=== PATIENT | female | born 1985 | race African-American/Black ===

== ENCOUNTER 2017-05-28 07:05 | Inpatient (IN) | payer BC ==
[~2017-05-28] VITALS: Ht 170.2 cm; Wt 120.7 kg
[2017-05-28] MEDS ORDERED: TOPIRAMATE25 MG PO (07:35)
[2017-05-28] MEDS ORDERED: PILOCARPINE HCL PEG (07:35)
[2017-05-28] MEDS ORDERED: GABAPENTIN100 MG PEG (07:35)
[2017-05-28] MEDS ORDERED: PLAQUENIL200 MG PO (07:35)
[2017-05-28] MEDS ORDERED: ACYCLOVIR200 MG PO (07:35)
[2017-05-28] MEDS ORDERED: ULTRAM50 MG PO (07:35)
[2017-05-28] MEDS ORDERED: ZOFRAN ODT4 MG SL (07:35)
[2017-05-28] MEDS ORDERED: PROMETHAZINE HC25 M1 PO (07:35)
[2017-05-28] MEDS ORDERED: TYLENOL WITH C1 EACH PO (07:35)
[2017-05-28] MEDS ORDERED: TRIUMEQ 600-50-300 PO (07:35)
[2017-05-28] MEDS ORDERED: METHYLPREDNISOLONE SOD SUCC 125 MG/2ML VIAL IV STA (07:36)
[2017-05-28] MEDS ORDERED: MORPHINE SULFATE 5 MG/ML VIAL IV STA (07:36)
[2017-05-28] MEDS ORDERED: SODIUM CHLORIDE 0.9% 1000ML 1,000 ML IV STA (07:36)
[2017-05-28] MEDS ORDERED: ONDANSETRON HCL INJ 2 MG/ML VIAL IV STA (07:36)
[2017-05-28 08:11] LABS: BASOPHILS # (AUTO) 0.1 (0.0-0.1); BASOPHILS % 0.7 % (0.0-1.0); EOSINOPHILS # (AUTO) 0.1 (0.0-0.4); EOSINOPHILS % 0.9 % (0.0-6.0); HEMATOCRIT 37.2 % (34.2-44.1); HEMOGLOBIN 12.1 g/dL (12.0-16.0); LYMPHOCYTES # (AUTO) 2.2 (1.0-3.2); LYMPHOCYTES % 23.6 % (18.0-39.1); MEAN CORPUSCULAR HEMOGLOBIN 29.1 pg (28-32); MEAN CORPUSCULAR HGB CONC 32.5 g/dL (31-35); MEAN CORPUSCULAR VOLUME 89.4 fL (81-99); MONOCYTES # (AUTO) 0.9 (0.2-0.8); MONOCYTES % 9.4 % (4.4-11.3); PLATELET COUNT 254 x10e3/uL (140-360); RED BLOOD COUNT 4.16 x10e6/uL (3.6-5.1); RED CELL DISTRIBUTION WIDTH 13.4 % (11.7-14.4)
[2017-05-28] MEDS ORDERED: MORPHINE SULFATE 5 MG/ML VIAL IV ONE ×2 (08:30→09:00)
[2017-05-28] MEDS ORDERED: ONDANSETRON HCL INJ 2 MG/ML VIAL IV ONE (08:30)
[2017-05-28 08:44] LABS: BILIRUBIN,URINE NEGATIVE (NEGATIVE); KETONES,URINE NEGATIVE (NEGATIVE); LEUKOCYTE ESTERASE ,URINE TRACE (NEGATIVE); NITRITE,URINE NEGATIVE (NEGATIVE); PROTEIN,URINE DIPSTICK NEGATIVE (NEGATIVE); URINE UROBILINOGEN 0.2 mg/dL (0.2 - 1)
[2017-05-28 08:45] LABS: INR 0.94
[2017-05-28 08:46] LABS: PARTIAL THROMBOPLASTIN TIME 31.4 seconds (23.8-35.5)
[2017-05-28 08:54] LABS: CLARITY,URINE SL CLOUDY (CLEAR); COLOR,URINE YELLOW (YELLOW)
[2017-05-28 08:55] LABS: ALANINE AMINOTRANSFERASE 18 IU/L (0-55); ALBUMIN 3.5 g/dL (3.5-5.0); ALKALINE PHOSPHATASE 94 IU/L (40-150); ANION GAP 12.4 mmol/L (8-16); BLOOD UREA NITROGEN 11 mg/dL (7-26); BUN/CREATININE RATIO 13 (6-25); CALCIUM 8.4 mg/dL (8.4-10.2); CARBON DIOXIDE 20 mmol/L (22-29); CHLORIDE 111 mmol/L (98-107); CREATININE, SERUM 0.82 mg/dL (0.57-1.11); EST GLOMERULAR FILTRATION RATE > 60 ML/MIN (60-); GLUCOSE 89 mg/dL (74-118); LIPASE 25 U/L (8-78); POTASSIUM 3.4 mmol/L (3.5-5.1); SODIUM 140 mmol/L (136-145)
[2017-05-28 09:00] LABS: BACTERIA,URINE RARE /HPF; EPITHELIAL CELLS,URINE MODERATE /LPF
--- NOTE | 2017-05-28 09:12 | Diagnostic Imaging Report ---
PROCEDURE: X-RAY CHEST, TWO VIEWS COMPARISON: 03/11/2017. INDICATIONS: LUPUS, WEAKNESS FINDINGS: Lungs are well-inflated. Right infrahilar patchy opacity is unchanged and likely represents summation of vascular structures. Nodular opacity projects over the column on the lateral radiograph and is also unchanged. No new consolidation. No pleural effusion or pneumothorax. Stable borderline enlargement of the cardiac silhouette without vascular decompensation. No acute osseous abnormality. CONCLUSION: Stable right infrahilar opacity likely represents summation of vascular structures. No acute cardiopulmonary normality. Questionable nodular opacity projecting over the vertebral column, best seen on the lateral radiograph. Outpatient CT scan of the chest without contrast is suggested for further evaluation. Dictated by: Neel Morrow M.D. on 05/28/2017 at 9:21 Electronically approved by: Neel Morrow M.D. on 05/28/2017 at 9:21
[2017-05-28] MEDS ORDERED: MORPHINE SULFATE 4 MG/ML SYR IV SCH (09:30)
[2017-05-28] MEDS ORDERED: MORPHINE SULFATE 5 MG/ML VIAL IV SCH (10:00)
[2017-05-28] MEDS ORDERED: CEFTRIAXONE SOD 1 GM VIAL IV ONE (11:00)
--- NOTE | 2017-05-28 11:45 | Diagnostic Imaging Report ---
PROCEDURE: CT ABDOMEN AND PELVIS WITH CONTRAST TECHNIQUE: The abdomen and pelvis were scanned utilizing a multidetector helical scanner from the diaphragm to the lesser trochanter after the IV administration of 100 cc of Isovue 370. Coronal and sagittal multiplanar reformations were obtained. COMPARISON: None. INDICATIONS: LUPUS FINDINGS: LOWER THORAX: Normal. HEPATOBILIARY: No focal hepatic lesion. No intrahepatic or extrahepatic biliary ductal dilatation. Gallbladder is unremarkable. SPLEEN: No splenomegaly. Small splenule in the hilum. PANCREAS: No focal masses or ductal dilatation. ADRENALS: No adrenal nodules. KIDNEYS/URETERS: No hydronephrosis, stones, or solid mass lesions. PELVIC ORGANS/BLADDER: Urinary bladder is unremarkable. Intrauterine device is noted. No adnexal mass. PERITONEUM / RETROPERITONEUM: No ascites or pneumoperitoneum. LYMPH NODES: No pelvic sidewall, retroperitoneal, or mesenteric lymphadenopathy. Mildly prominent left inguinal lymph node measures 1.3 cm short axis with normal morphology. VESSELS: The abdominal aorta, major branch vessels, and iliac arterial systems are patent. Portal vein, splenic vein, and central superior mesenteric vein are patent. Incidental note of a retroaortic left renal vein. GI TRACT: The large bowel shows no evidence of distention or wall thickening. Gas and fecal material is noted throughout. The appendix is normal. There are a few mildly dilated loops of small bowel in the left upper quadrant to a maximum of 3.4 cm in caliber. No transition point is identified. BONES AND SOFT TISSUES: Postsurgical changes of the left inguinal region likely related to prior lymph node dissection. Otherwise no focal soft tissue abnormalities. No osseous destructive lesions. IMPRESSION: Mildly dilated loops of small bowel in the left upper quadrant likely reflects ileus in the absence of a defined transition point. Otherwise no acute intra-abdominal or pelvic CT abnormalities. Dictated by: Neel Morrow M.D. on 05/28/2017 at 11:54 Electronically approved by: Neel Morrow M.D. on 05/28/2017 at 11:54
[2017-05-28] MEDS ORDERED: PROMETHAZINE HCL (IM) 25 MG/ML VIAL IV PRN (12:45)
[2017-05-28] MEDS ORDERED: MORPHINE SULFATE 2 MG/ML SYR IV PRN (12:45)
[2017-05-28] MEDS ORDERED: CEFTRIAXONE SOD 1 GM VIAL IV SCH (12:45)
[2017-05-28] MEDS: SODIUM CHLORIDE 0.9% 1000ML 1,000 ML IV SCH ×2 (13:41→20:32)
[2017-05-28] MEDS ORDERED: IOPAMIDOL 370 MG/ML 200 ML INFUS..BTL INJ ONE (13:49)
[2017-05-28] MEDS ORDERED: SODIUM CHLORIDE 0.9% 50ML 50 ML ONE (13:49)
[2017-05-28] MEDS: MORPHINE SULFATE 5 MG/ML VIAL IV PRN ×2 (14:34→22:21)
[2017-05-28] MEDS: METHYLPREDNISOLONE SOD SUCC 125 MG/2ML VIAL IV SCH ×2 (14:34→22:48)
--- NOTE | 2017-05-28 19:48 | History and Physical ---
The patient came in with abdominal pain. HISTORY OF PRESENT ILLNESS: Ms. Rosalina Nelson has a history of lupus erythematosus, Sjogren's syndrome and HIV. She was in her usual state of health until the day of admission the patient woke up in the morning and felt funny, according to her. She started driving and felt abdominal pain and was intensifying and came to the emergency room and was found to have an ileus and was admitted for the same. PAST MEDICAL HISTORY: History of migraine headaches, history of HIV, history of Sjogren's syndrome, history of chronic nausea, history of chronic pain and history of lupus. HOME MEDICATIONS: Gabapentin 100 mg at 1 a.m. and 3 p.m. Pilocarpine 3 times daily for Sjogren's, 15 mg 2 tablets daily for migraine. Plaquenil 200 mg 2 tablets daily for lupus. Promethazine 25 mg one q.12 h. as needed. Ondansetron 4 mg q.6 h. as needed. Tramadol 50 mg q.6 h. as needed. codeine 330 tablet q.6 h. She also takes Triumeq 650, 300 for HIV. Acyclovir 200 mg daily for herpetic outbreaks. PAST SURGICAL HISTORY: Noncontributory. FAMILY HISTORY: Noncontributory. REVIEW OF SYSTEMS: Significant for chest pain. Positive for some shortness of breath. Positive for abdominal pain. No constipation. Did have bowel movement yesterday. Positive for some nausea. No hematochezia, no hematemesis and no rectal bleeding. No diplopia and no blurry vision. PHYSICAL EXAMINATION GENERAL: The patient is alert and oriented x3 and in no acute distress at this time. Pain is controlled. HEENT: Normocephalic, atraumatic. There is no icterus present. CVS: S1 and S2 normal. Regular rate and rhythm. ABDOMEN: Nondistended, soft, bowel sounds very sluggish. EXTREMITIES: No cyanosis, clubbing or edema. LABORATORY DATA: Initial white count 9.5, hemoglobin 12.1, hematocrit of 37.2. Chemistry: Sodium 140, potassium 3.4, chloride 111. CO2 was 20 and coags were normal. Urine was also showed a trace of mild leukocyte esterase and moderate amount of epithelial cells. Serology influenza was negative. The patient also did have body aches too. IMAGING: Chest x-ray shows stable right infrahilar opacity, inflammation of vascular structure, questionable nodular opacity projecting over the vertebral ____, best seen through lateral radiograph. The patient's CT of the chest without contrast suggested, and the patient was notified of this, and the patient was asked to do that on an outpatient basis and she agreed to it. The abdominal CT shows mildly dilated loops of small bowel in the left upper quadrant likely reflecting ileus in absence of defined transition point. ASSESSMENT AND PLAN: Ileus. Will keep to n.p.o. IV fluid has been started. Will also consult GI and will continue keeping her n.p.o. for tonight, at least repeat her magnesium and calcium, and her chemistries tomorrow. Further recommendations depending on clinical course. We did discuss the patient about ileus and she was agreeable to the treatment modality. Will continue to follow the patient along with GI. Job#: [id number]
[2017-05-28 20:45] VITALS: BP 112/68
[2017-05-28] MEDS: ONDANSETRON HCL INJ 2 MG/ML VIAL IV PRN (22:21)
[2017-05-28 22:27] VITALS: BP 112/68
[2017-05-28 23:40] VITALS: BP 112/68
[2017-05-29] MEDS ORDERED: ACYCLOVIR200 MG PO (00:22)
[2017-05-29] MEDS ORDERED: PILOCARPINE HCL5 MG PO (00:22)
[2017-05-29] MEDS ORDERED: PLAQUENIL200 MG PO (00:22)
[2017-05-29] MEDS ORDERED: PROMETHAZINE HC25 M1 PO (00:23)
[2017-05-29] MEDS ORDERED: GABAPENTIN100 MG PO ×2 (00:26→00:27)
[2017-05-29] MEDS ORDERED: TYLENOL WITH C1 EACH PO (00:29)
[2017-05-29 02:09] VITALS: BP 110/75
[2017-05-29] MEDS: PANTOPRAZOLE 40 MG 10ML VIAL IV SCH ×3 (04:35→22:45)
[2017-05-29] MEDS: SODIUM CHLORIDE 0.9% 1000ML 1,000 ML IV SCH ×3 (05:15→17:21)
[2017-05-29] MEDS: METHYLPREDNISOLONE SOD SUCC 125 MG/2ML VIAL IV SCH ×3 (05:57→22:45)
[2017-05-29 06:10] LABS: BASOPHILS % 0.1 % (0.0-1.0); HEMATOCRIT 34.2 % (34.2-44.1); HEMOGLOBIN 11.4 g/dL (12.0-16.0); LYMPHOCYTES # (AUTO) 1.6 (1.0-3.2); LYMPHOCYTES % 10.5 % (18.0-39.1); MEAN CORPUSCULAR HEMOGLOBIN 29.2 pg (28-32); MEAN CORPUSCULAR HGB CONC 33.3 g/dL (31-35); MEAN CORPUSCULAR VOLUME 87.7 fL (81-99); MONOCYTES # (AUTO) 0.2 (0.2-0.8); MONOCYTES % 1.6 % (4.4-11.3); NEUTROPHILS # (AUTO) 13.3 (2.1-6.9); NEUTROPHILS % 87.3 % (38.7-80.0); PLATELET COUNT 259 x10e3/uL (140-360); RED CELL DISTRIBUTION WIDTH 13.2 % (11.7-14.4)
[2017-05-29 06:11] VITALS: BP 108/58
[2017-05-29 06:45] LABS: ALANINE AMINOTRANSFERASE 14 IU/L (0-55); ALBUMIN 3.4 g/dL (3.5-5.0); ALKALINE PHOSPHATASE 95 IU/L (40-150); ANION GAP 10.7 mmol/L (8-16); BLOOD UREA NITROGEN 10 mg/dL (7-26); BUN/CREATININE RATIO 13 (6-25); CALCIUM 8.1 mg/dL (8.4-10.2); CARBON DIOXIDE 17 mmol/L (22-29); CHLORIDE 115 mmol/L (98-107); CREATININE, SERUM 0.76 mg/dL (0.57-1.11); EST GLOMERULAR FILTRATION RATE > 60 ML/MIN (60-); GLUCOSE 109 mg/dL (74-118); LIPASE 8 U/L (8-78); MAGNESIUM 1.8 MG/DL (1.3-2.1); PHOSPHORUS 2.7 MG/DL (2.3-4.7); POTASSIUM 3.7 mmol/L (3.5-5.1); SODIUM 139 mmol/L (136-145)
[2017-05-29 07:04] LABS: THYROID STIMULATING HORMONE 0.244 uIU/mL (0.350-4.940)
[2017-05-29 08:30] VITALS: BP 103/54
[2017-05-29] MEDS ORDERED: SINCALIDE 3 MCG/VIAL INJ ONE (09:02)
--- NOTE | 2017-05-29 09:11 | Diagnostic Imaging Report ---
PROCEDURE:X-RAY ABDOMEN - KUB COMPARISON:None. INDICATIONS:ILLEUS FINDINGS: There is a non-obstructed bowel-gas pattern. There are no calcifications projected over the renal shadows, expected course of the ureters or bladder. There are no acute osseous abnormalities. The lung bases are clear. Intrauterine device is present. Phleboliths are present. CONCLUSION: No acute radiographic abnormality. Dictated by: Joshua Vera M.D. on 05/29/2017 at 9:19 Electronically approved by: Joshua Vera M.D. on 05/29/2017 at 9:19
[2017-05-29] MEDS: PIPER-TAZ 3.375 GM 50 ML IV SCH ×2 (12:00→17:21)
[2017-05-29 15:54] VITALS: BP 121/60
[2017-05-29] MEDS: TRIUMEQ PO SCH (17:00)
--- NOTE | 2017-05-29 17:54 | Diagnostic Imaging Report ---
PROCEDURE:US GALLBLADDER COMPARISON:None. INDICATIONS:R/O Gallstones FINDINGS: LIVER: Size:12.1 cm in the right nidclavicular line, normal Appearance:Normal echogenicity, smooth contour Mass:No focal masses GALLBLADDER: Stones/Sludge:None Appearance:No wall thickening, pericholecystic fluid or hydrops. Gallbladder wall measures 0.3 cm. Sonographic Boyer's Sign:Negative BILE DUCTS: Intrahepatic Ducts:No dilation Extrahepatic Ducts:Common bile duct measures 0.30 cm, no dilatation. PANCREAS: Visualized portions of the neck and proximal body are normal. RIGHT KIDNEY: Size:11.7 x 4.4 x 6.3 cm in length Echogenicity:Normal Collecting System:No hydronephrosis Stone:None Cyst/Mass:None VESSELS: Aorta:Visualized portions are normal. Inferior Vena Cava:Visualized portions are normal. Main Portal Vein:1.0 cm, normal size with hepatopedal flow. FREE FLUID: No ascites or pleural effusions. CONCLUSION: Normal right upper quadrant ultrasound. Dictated by: Daniel Spear M.D. on 05/29/2017 at 18:03 Electronically approved by: Daniel Spear M.D. on 05/29/2017 at 18:03
[2017-05-29 20:00] VITALS: BP 118/54
[2017-05-30] VITALS (10 sets, daily range): BP systolic 95–117; BP diastolic 51–66
[2017-05-30] MEDS: PIPER-TAZ 3.375 GM 50 ML IV SCH ×4 (00:06→18:31)
[2017-05-30] MEDS: MORPHINE SULFATE 5 MG/ML VIAL IV PRN ×3 (00:46→06:28)
[2017-05-30] MEDS: SODIUM CHLORIDE 0.9% 1000ML 1,000 ML IV SCH ×2 (04:12→13:11)
[2017-05-30] MEDS: METHYLPREDNISOLONE SOD SUCC 125 MG/2ML VIAL IV SCH ×3 (05:47→21:47)
[2017-05-30] MEDS: ONDANSETRON HCL INJ 2 MG/ML VIAL IV PRN (06:28)
[2017-05-30] MEDS: PANTOPRAZOLE 40 MG 10ML VIAL IV SCH ×2 (08:16→21:47)
[2017-05-30] MEDS: TRIUMEQ PO SCH (08:16)
--- NOTE | 2017-05-30 13:25 | Diagnostic Imaging Report ---
Hepatobiliary Scan with Gallbladder Ejection Fraction Clinical information: 32 F with upper abdominal pain; chronic nausea Technique: Following intravenous administration of 6.8 millicuries of Tc-99m mebrofenin, dynamic images of the abdomen in the anterior projection were obtained through 60 minutes. Sincalide (CCK analog) 2.5 micrograms was administered intravenously over 30 minutes with additional imaging for determination of gallbladder ejection fraction. Discussion: Perfusion of the liver is normal. Extraction of tracer by the liver parenchyma is normal. Tracer appears promptly within the biliary tract. The gallbladder begins to fill by 10 minutes post injection of tracer and fills adequately. Tracer is seen in the small bowel during the sincalide infusion. The gallbladder ejection fraction with sincalide is 17% (normal greater than 40%). Impression: 1. Filling of the gallbladder excludes acute cystic duct obstruction/acute cholecystitis. 2. The decreased gallbladder ejection fraction of 17% supports the clinical diagnosis of chronic cholecystitis/gallbladder dyskinesia. Signed by: Dr. Viktoriya Tee M.D. on 05/30/2017 1:22 PM
--- NOTE | 2017-05-30 16:08 | Operative Report ---
DATE OF PROCEDURE: May 30, 2017 REFERRING PHYSICIAN: Dr. Luis Melara PROCEDURE PERFORMED: Esophagogastroduodenoscopy. INDICATIONS FOR ESOPHAGOGASTRODUODENOSCOPY: Upper abdominal pain, nausea and vomiting. MEDICATION: Patient was done under MAC. Please see anesthesiologist's note. PROCEDURE: With patient in the left lateral decubitus position, flexible fiberoptic Olympus gastroscope was introduced into the esophagus under direct visualization without any difficulty. There was some patchy erythema noted in distal esophagus. The scope was then advanced with ease into the stomach and mucosa overlying the antrum and the body revealed some patchy erythema and low-grade edema and biopsies were obtained and sent to stain for H. pylori. The pylorus was of normal contour and shape. Was intubated with ease and the scope was advanced all the way to the 2nd portion of the duodenum. The scope was then withdrawn slowly. Mucosa overlying the proximal 2nd portion and the duodenal bulb appeared to be within normal limits. The scope was then withdrawn back into the stomach and retroflexed and the mucosa overlying the fundus and the cardia appeared to be within normal limits. The scope was then straightened out. The stomach was decompressed. Scope was subsequently withdrawn. Patient tolerated procedure well. IMPRESSION: 1. Distal esophagitis. 2. Gastritis, mild, biopsied. Biopsy sent to stain for H. pylori. PLAN: Follow up histology. Continue Protonix 40 mg 1 p.o. q.a.m. a.c. Findings do not explain patient's abdominal pain, nausea, or vomiting. Might benefit from having a laparoscopic cholecystectomy. Job#: [id number] cc:LUIS MELARA MD cc:BELLA VICK MD
[2017-05-30] MEDS ORDERED: MIDAZOLAM HCL 2 MG/2 ML VIAL ONE (20:04)
[2017-05-30] MEDS ORDERED: FENTANYL CITRATE/PF 100MCG/2 ML INJ ONE (20:04)
[2017-05-30] MEDS ORDERED: PROPOFOL IV EMULSION 10 MG/ML 50 ML VIAL ONE (20:30)
[2017-05-30] MEDS ORDERED: LIDOCAINE HCL 2% LOCAL INJ 5 ML SDV VIAL INJ ONE (20:30)
[2017-05-31] VITALS (9 sets, daily range): BP systolic 103–134; BP diastolic 58–76
[2017-05-31] MEDS: PIPER-TAZ 3.375 GM 50 ML IV SCH ×4 (00:30→17:18)
[2017-05-31] MEDS: ONDANSETRON HCL INJ 2 MG/ML VIAL IV PRN ×3 (01:28→18:47)
[2017-05-31] MEDS: MORPHINE SULFATE 5 MG/ML VIAL IV PRN ×3 (01:28→18:47)
[2017-05-31] MEDS: SODIUM CHLORIDE 0.9% 1000ML 1,000 ML IV SCH ×4 (02:35→20:40)
[2017-05-31] MEDS: METHYLPREDNISOLONE SOD SUCC 125 MG/2ML VIAL IV SCH ×3 (06:04→21:43)
[2017-05-31 06:42] LABS: BASOPHILS % 0.1 % (0.0-1.0); HEMATOCRIT 32.7 % (34.2-44.1); HEMOGLOBIN 10.7 g/dL (12.0-16.0); LYMPHOCYTES # (AUTO) 1.6 (1.0-3.2); MEAN CORPUSCULAR HEMOGLOBIN 29.2 pg (28-32); MEAN CORPUSCULAR HGB CONC 32.7 g/dL (31-35); MEAN CORPUSCULAR VOLUME 89.3 fL (81-99); MONOCYTES # (AUTO) 0.3 (0.2-0.8); MONOCYTES % 2.3 % (4.4-11.3); NEUTROPHILS # (AUTO) 9.6 (2.1-6.9); PLATELET COUNT 261 x10e3/uL (140-360); RED BLOOD COUNT 3.66 x10e6/uL (3.6-5.1); RED CELL DISTRIBUTION WIDTH 13.4 % (11.7-14.4)
[2017-05-31 07:03] LABS: ANION GAP 10.7 mmol/L (8-16); BLOOD UREA NITROGEN 12 mg/dL (7-26); BUN/CREATININE RATIO 16 (6-25); CALCIUM 7.6 mg/dL (8.4-10.2); CARBON DIOXIDE 21 mmol/L (22-29); CHLORIDE 114 mmol/L (98-107); CREATININE, SERUM 0.73 mg/dL (0.57-1.11); EST GLOMERULAR FILTRATION RATE > 60 ML/MIN (60-); GLUCOSE 111 mg/dL (74-118); POTASSIUM 3.7 mmol/L (3.5-5.1); SODIUM 142 mmol/L (136-145)
[2017-05-31] MEDS ORDERED: BUPIVACAINE 0.25% 30ML SDV INJ ONE (08:55)
[2017-05-31] MEDS: TRIUMEQ PO SCH (09:00)
[2017-05-31] MEDS: PANTOPRAZOLE 40 MG 10ML VIAL IV SCH ×2 (09:00→21:00)
[2017-05-31] MEDS ORDERED: FENTANYL CITRATE/PF 100MCG/2 ML INJ ONE ×2 (11:56→18:51)
--- NOTE | 2017-05-31 12:28 | Operative Report ---
DATE OF PROCEDURE: May 31, 2017 PREOPERATIVE DIAGNOSIS: Biliary dyskinesia. POSTOPERATIVE DIAGNOSIS: 1. Biliary dyskinesia. 2. Acalculous cholecystitis. PROCEDURE PERFORMED: Laparoscopic cholecystectomy. ANESTHESIA: General endotracheal. ESTIMATED BLOOD LOSS: Minimal. DRAINS: None. COMPLICATIONS: None. INDICATIONS AND FINDINGS: The patient is a 32-year-old female with multiple medical problems, admitted through the emergency room because of sudden onset of abdominal pain. Patient was evaluated by Dr. Rick Dsouza from and was found to have biliary dyskinesia with an ejection fraction of 17%. She had no stones. Preoperatively she was endoscoped and had some mild distal esophagitis and gastritis. The patient preoperatively was advised and understood that there were no guarantees that the pain may not recur later on. INTRAOPERATIVE FINDINGS: The patient had a very long gallbladder that was filled with bile. There was no ductal dilatation. There were no obvious stones. There were adhesions of the stomach and the omentum to the gallbladder, all consistent with previous inflammation. There was no evidence of acute inflammatory process at this time. DESCRIPTION OF PROCEDURE: With the patient lying on the operative table in the supine position and after administration of general anesthesia, she was prepped and draped for laparoscopic cholecystectomy. The procedure was begun by establishing a pneumoperitoneum in the right upper quadrant midclavicular line because the patient was obese. The pneumoperitoneum was insufflated to 15 mm of pressure and then the 5 mm trocar placed in that location. Under direct vision with a camera, we placed a blunt trocar in the umbilical site and then rotated the patient to the left and with the head up and placed a 10 mm subxiphoid port. Under direct vision with a 10 mm camera, finally a right anterior axillary line trocar was placed. The gallbladder was then retracted cephalad using grasping forceps, and the dissection on it was begun, dissecting the omentum and the stomach from the gallbladder sharply. Then we identified the cystic duct eventually after mobilization of the gallbladder. The cystic duct was small, nondilated, nor was the common bile duct. We then identified the junction 360 degrees circumferentially. Then we clipped the cystic duct 3 times distally, once proximally and transected it. The cystic artery was also transected between titanium clips, and then the gallbladder was taken down from the liver bed methodically using electrocautery dissection. The gallbladder was then removed through the subxiphoid port. The right upper quadrant was inspected. There was no bile leak. No bleeding. No apparent bowel injury. Then we released the pneumoperitoneum and closed the wounds using 0 Vicryl for the umbilical fascia, 3-0 Vicryl for the subcutaneous tissue in that location as well as the subxiphoid port, and the skin of all the ports was closed using chantale. The patient tolerated the procedure well, was taken to the recovery room in stable condition. Job#: [id number] EV
[2017-05-31] MEDS ORDERED: MORPHINE SULFATE 5 MG/ML VIAL ONE (12:35)
[2017-05-31] MEDS: HYDROCODONE/APAP 7.5MG-325MG 1 EA TAB PO PRN ×2 (17:15→21:43)
[2017-05-31] MEDS ORDERED: NEOSTIGMINE 5 MG/5ML SYR ONE (18:03)
[2017-05-31] MEDS ORDERED: ROCURONIUM BROMIDE 10 MG/ML 5ML VIAL ONE (18:03)
[2017-05-31] MEDS ORDERED: LIDOCAINE HCL 2% LOCAL INJ 5 ML SDV VIAL INJ ONE (18:03)
[2017-05-31] MEDS ORDERED: GLYCOPYRROLATE INJ 1MG/ 5 ML SYR ONE (18:03)
[2017-05-31] MEDS ORDERED: PROPOFOL IV EMULSION 10 MG/ML 20 ML VIAL ONE (18:03)
[2017-05-31] MEDS ORDERED: DEXAMETHASONE SOD PHOS INJ 4 MG/ML VIAL ONE (18:03)
[2017-05-31] MEDS ORDERED: ONDANSETRON HCL INJ 2 MG/ML VIAL ONE (18:03)
[2017-05-31] MEDS ORDERED: DESFLURANE 240 ML BTL INH ONE (18:03)
[2017-05-31] MEDS ORDERED: MIDAZOLAM HCL 2 MG/2 ML VIAL ONE (18:51)
--- NOTE | 2017-05-31 22:37 | Progress Note ---
DATE: May 31, 2017 COVERING FOR: Dr. Rick Dsouza. SUBJECTIVE: Ms. Nelson is status post laparoscopic cholecystectomy today. Doing fine. Awake, alert. Somewhat sleepy due to recent sedation. No particular complaint. OBJECTIVE VITALS: Temperature 97.8, pulse 49, respiratory rate 20, blood pressure 134/65. LABS: Liver function normal. BUN and creatinine normal. Sodium and potassium normal. ASSESSMENT AND PLAN: Currently, she is morphine, Zofran, [place], Protonix, piperacillin, tazobactam and Solu-Medrol. Nothing to add from GI standpoint. Patient undergoing the routine recovery course from her recent laparoscopic cholecystectomy. Job#: [id number] PEPE
[2017-06-01] VITALS: BP 124/62
[2017-06-01] MEDS: MORPHINE SULFATE 5 MG/ML VIAL IV PRN ×2 (01:46→09:53)
[2017-06-01 04:00] VITALS: BP 120/65
[2017-06-01] MEDS: SODIUM CHLORIDE 0.9% 1000ML 1,000 ML IV SCH ×5 (04:40→20:40)
[2017-06-01] MEDS: PIPER-TAZ 3.375 GM 50 ML IV SCH ×4 (06:00→18:02)
[2017-06-01] MEDS: METHYLPREDNISOLONE SOD SUCC 125 MG/2ML VIAL IV SCH ×3 (06:00→21:37)
[2017-06-01 07:22] LABS: BASOPHILS % 0.1 % (0.0-1.0); HEMATOCRIT 31.9 % (34.2-44.1); HEMOGLOBIN 10.7 g/dL (12.0-16.0); LYMPHOCYTES # (AUTO) 1.3 (1.0-3.2); LYMPHOCYTES % 9.9 % (18.0-39.1); MEAN CORPUSCULAR HEMOGLOBIN 29.7 pg (28-32); MEAN CORPUSCULAR HGB CONC 33.5 g/dL (31-35); MEAN CORPUSCULAR VOLUME 88.6 fL (81-99); MONOCYTES # (AUTO) 0.6 (0.2-0.8); MONOCYTES % 4.3 % (4.4-11.3); NEUTROPHILS # (AUTO) 11.4 (2.1-6.9); NEUTROPHILS % 85.1 % (38.7-80.0); PLATELET COUNT 241 x10e3/uL (140-360); RED CELL DISTRIBUTION WIDTH 13.2 % (11.7-14.4)
[2017-06-01 07:39] LABS: ALANINE AMINOTRANSFERASE 47 IU/L (0-55); ALBUMIN 2.9 g/dL (3.5-5.0); ALKALINE PHOSPHATASE 73 IU/L (40-150); ANION GAP 9.3 mmol/L (8-16); BLOOD UREA NITROGEN 9 mg/dL (7-26); BUN/CREATININE RATIO 13 (6-25); CALCIUM 7.4 mg/dL (8.4-10.2); CARBON DIOXIDE 23 mmol/L (22-29); CHLORIDE 111 mmol/L (98-107); CREATININE, SERUM 0.72 mg/dL (0.57-1.11); EST GLOMERULAR FILTRATION RATE > 60 ML/MIN (60-); GLUCOSE 121 mg/dL (74-118); POTASSIUM 3.3 mmol/L (3.5-5.1); SODIUM 140 mmol/L (136-145)
[2017-06-01 07:50] VITALS: BP 120/68
[2017-06-01] MEDS: PANTOPRAZOLE 40 MG 10ML VIAL IV SCH ×2 (09:08→21:00)
[2017-06-01] MEDS: TRIUMEQ PO SCH (09:08)
[2017-06-01] MEDS: ONDANSETRON HCL INJ 2 MG/ML VIAL IV PRN (09:53)
[2017-06-01] MEDS ORDERED: POTASSIUM CHLORIDE 20 MEQ TAB CR PO NR (10:00)
[2017-06-01 11:31] VITALS: BP 117/58
[2017-06-01 15:45] VITALS: BP 125/67
[2017-06-01] MEDS: HYDROCODONE/APAP 7.5MG-325MG 1 EA TAB PO PRN (16:03)
[2017-06-01 20:00] VITALS: BP 145/83
[2017-06-02] VITALS: BP 138/81
[2017-06-02] MEDS: SODIUM CHLORIDE 0.9% 1000ML 1,000 ML IV SCH (01:32)
[2017-06-02] MEDS: ONDANSETRON HCL INJ 2 MG/ML VIAL IV PRN (01:46)
[2017-06-02] MEDS: MORPHINE SULFATE 5 MG/ML VIAL IV PRN (01:46)
[2017-06-02 04:00] VITALS: BP 136/81
[2017-06-02] MEDS: PIPER-TAZ 3.375 GM 50 ML IV SCH ×3 (05:40→13:00)
[2017-06-02] MEDS: METHYLPREDNISOLONE SOD SUCC 125 MG/2ML VIAL IV SCH ×2 (05:40→14:39)
[2017-06-02 07:30] VITALS: BP 145/83
[2017-06-02 07:36] VITALS: BP 145/83
[2017-06-02] MEDS: TRIUMEQ PO SCH (09:00)
[2017-06-02] MEDS: PANTOPRAZOLE 40 MG 10ML VIAL IV SCH (09:26)
[2017-06-02 11:44] LABS: BASOPHILS % 0.1 % (0.0-1.0); HEMATOCRIT 32.4 % (34.2-44.1); HEMOGLOBIN 10.7 g/dL (12.0-16.0); LYMPHOCYTES # (AUTO) 1.4 (1.0-3.2); LYMPHOCYTES % 9.6 % (18.0-39.1); MEAN CORPUSCULAR HEMOGLOBIN 29.2 pg (28-32); MEAN CORPUSCULAR VOLUME 88.5 fL (81-99); MONOCYTES # (AUTO) 0.7 (0.2-0.8); MONOCYTES % 5.3 % (4.4-11.3); NEUTROPHILS # (AUTO) 11.8 (2.1-6.9); NEUTROPHILS % 83.9 % (38.7-80.0); PLATELET COUNT 265 x10e3/uL (140-360); RED BLOOD COUNT 3.66 x10e6/uL (3.6-5.1); RED CELL DISTRIBUTION WIDTH 13.2 % (11.7-14.4)
[2017-06-02 11:50] VITALS: BP 114/63
[2017-06-02 12:05] LABS: ANION GAP 8.7 mmol/L (8-16); BLOOD UREA NITROGEN 10 mg/dL (7-26); BUN/CREATININE RATIO 14 (6-25); CALCIUM 7.4 mg/dL (8.4-10.2); CARBON DIOXIDE 25 mmol/L (22-29); CHLORIDE 110 mmol/L (98-107); EST GLOMERULAR FILTRATION RATE > 60 ML/MIN (60-); GLUCOSE 124 mg/dL (74-118); POTASSIUM 3.7 mmol/L (3.5-5.1); SODIUM 140 mmol/L (136-145)
[2017-06-02] MEDS: HYDROCODONE/APAP 7.5MG-325MG 1 EA TAB PO PRN (14:25)
[2017-06-02] MEDS ORDERED: FUROSEMIDE INJ 10 MG/ML 4 ML VIAL IV ONE (14:30)
[2017-06-02] MEDS ORDERED: TYLENOL WITH C1 EACH PO (15:10)
== END 2017-06-02 16:02 | disposition home or self-care (01) | DRG 357 ==
LOC: ER 07:05 → ERHOLD 19:34 → IMCU 19:35 → OBSVTOIN 05-31 10:15 → MED/SURG3 05-31 14:14
PROVIDERS: ADMIT Family Medicine; ATTEND Family Medicine
PROC: 0DB68ZX Excision of Stomach, Via Natural or Artificial Opening Endoscopic, Diagnostic (ICD-10-PCS; 2017-05-30)
PROC: 0FT44ZZ Resection of Gallbladder, Percutaneous Endoscopic Approach (ICD-10-PCS; principal; 2017-05-31 10:15)
DX: K56.7 Ileus, unspecified (principal); N39.0 Urinary tract infection, site not specified; M32.9 Systemic lupus erythematosus, unspecified; K81.1 Chronic cholecystitis; M35.00 Sjogren syndrome, unspecified; K82.8 Other specified diseases of gallbladder; Z21 Asymptomatic human immunodeficiency virus [HIV] infection status; K29.70 Gastritis, unspecified, without bleeding; K21.0 Gastro-esophageal reflux disease with esophagitis
CPT/HCPCS: 36415; 43239; 71046; 74018; 74177; 76705; 78227; 80048; 80053; 81001; 81025; 83690; 83735; 84100; 84443; 85025; 85610; 85651; 85730; 86140; 87040; 87086; 87400; 88304; 88305; 88312; 96361; 96367; 96375; 96376; 99284; A9537; C1766; G0378; J0696; J1100; J1940; J2001; J2250; J2270; J2405; J2543; J2550; J2805; J2930; J7030; Q9967

== ENCOUNTER 2018-05-15 21:39 | Emergency (ER) | payer OTHER, BC ==
[~2018-05-15] VITALS: Ht 322.6 cm; Wt 129.3 kg
[~2018-05-15 21:39] MED LIST: ACYCLOVIR200 MG PO; GABAPENTIN100 MG PEG; GABAPENTIN100 MG PO; PILOCARPINE HCL PEG; PILOCARPINE HCL5 MG PO; PLAQUENIL200 MG PO; PROMETHAZINE HC25 M1 PO; TOPIRAMATE25 MG PO; TRIUMEQ 600-50-300 PO; TYLENOL WITH C1 EACH PO; ULTRAM50 MG PO; ZOFRAN ODT4 MG SL
--- OUTSIDE RECORDS SUMMARY | 2018-05-15 21:42 | XMS REPORT ---
Author Author Jimbo Lyon Organization [employer] Address Unknown Phone Unavailable Care Team Providers Care River Pilot Name Role Phone Jimbo Lyon CP Unavailable Allergies No Known Allergies Problems Problem Type Condition Code Onset Dates Condition Status Assessment Other forms of dyspnea R06.09 Active Assessment Edema, unspecified type R60.9 Active Assessment Other symptoms involving cardiovascular system R09.89 Active Assessment Abnormal EKG R94.31 Active Assessment Chest pain at rest R07.9 Active Problem SLE exacerbation M32.9 Active Assessment Dizziness R42 Active Assessment Acute deep vein thrombosis (DVT) of brachial vein of right upper extremity I82.621 Active Assessment SLE exacerbation M32.9 Active Assessment 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
--- OUTSIDE RECORDS SUMMARY | 2018-05-15 21:42 | XMS REPORT ---
Author Author Jimbo Lyon Organization [employer] Address Unknown Phone Unavailable Care Team Providers Care Actuary Manager Name Role Phone Jimbo Lyon CP Unavailable Allergies, Adverse Reactions, Alerts Substance Reaction Event Type Naproxen anaphylaxis Drug Allergy Cymbalta anaphylaxis Drug Allergy Problems Problem Type Condition Code Onset Dates Condition Status Assessment Edema, unspecified type R60.9 Active Assessment [...] lupus erythematosus with endocarditis M32.11 Active Medications Medication Code System Code Instructions Start Date End Date Status Dosage Azathioprine [facility] [address]-90 50 MG Orally as directed Active 1 tablet Gabapentin [facility] [address]-18 100 MG Orally Active not defined Topiramate [facility] [address]-10 50 MG Orally Twice a day Active 1 tablet Pantoprazole Sodium [facility] [address]-20 40 MG Orally Once a day Active 1 tablet Promethazine HCl [facility] [address]-28 25 MG Orally every 12 hrs Active 1 tablet as needed Baclofen [facility] [address]-71 10 MG Orally once every night Active 1/2 to 1 tab Tramadol HCl ND 0 5 mg Orally every six to eight hours Active not defined Pilocarpine HCl [facility] [address]-11 5 MG Orally Three times a day Active 1 tablet PredniSONE [facility] [address]-70 20 MG Orally Once a day Active 1 tablet Famotidine [facility] [address]-60 40 MG Orally Once a day Active 1 tablet Meclizine HCl [facility] [address]-15 25 MG Orally Once a day Active 1 tablet as needed Acetaminophen [facility] [address]-00 500 MG Orally every 6 hrs Active 2 capsules as needed Gabapentin [facility] [address]-36 300 MG Orally once every night Active 1 capsule Hydroxychloroquine Sulfate [facility] [address]-10 200 MG Orally Once a day Active 1 tablet with food or milk Acyclovir [facility] [address]-53 200 MG Orally Three times a day Active 1 capsule Vital Signs Date/Time: August 14, 2016 BMI 38.31 Index Weight 252 lbs Height 5'8" in Cardiac Monitoring Heart Rate 68 /min Blood Pressure Diastolic 70 mm Hg Blood Pressure Systolic 118 mm Hg Results No Known Results Summary Purpose [employer] Submission
--- OUTSIDE RECORDS SUMMARY | 2018-05-15 21:42 | XMS REPORT ---
Author Author Jimbo Lyon Organization [employer] Address Unknown Phone Unavailable Care Team Providers Care Parking Attendant Name Role Phone Jimbo Lyon CP Unavailable [...] Instructions Start Date End Date Status Dosage Gabapentin [facility] [address]-38 100 MG Orally Active not defined Hydroxychloroquine Sulfate [facility] [address]-83 200 MG Orally Once a day Active 1 tablet with food or milk Promethazine HCl [facility] [address]-88 25 MG Orally every 12 hrs Active 1 tablet as needed Famotidine [facility] [address]-73 40 MG Orally Once a day Active 1 tablet Acyclovir [facility] [address]-29 200 MG Orally Three times a day Active 1 capsule Topiramate [facility] [address]-45 50 MG Orally Twice a day Active 1 tablet Tramadol HCl ND 0 5 mg Orally every six to eight hours Active not defined Acetaminophen [facility] [address]-78 500 MG Orally every 6 hrs Active 2 capsules as needed Azathioprine [facility] [address]-13 50 MG Orally as directed Active 1 tablet Meclizine HCl [facility] [address]-42 25 MG Orally Once a day Active 1 tablet as needed Pantoprazole Sodium [facility] [address]-86 40 MG Orally Once a day Active 1 tablet Pilocarpine HCl [facility] [address]-57 5 MG Orally Three times a day Active 1 tablet Gabapentin [facility] [address]-44 300 MG Orally once every night Active 1 capsule Baclofen [facility] [address]-91 10 MG Orally once every night Active 1/2 to 1 tab PredniSONE [facility] [address]-36 20 MG Orally Once a day Active 1 tablet Vital Signs Date/Time: July 24, 2016 BMI 39.22 Index Weight 258 lbs Height 5'8" in Cardiac Monitoring Heart Rate 66 /min Blood Pressure Diastolic 80 mm Hg Blood Pressure Systolic 124 mm Hg Results No Known Results Summary Purpose [employer] Submission
--- OUTSIDE RECORDS SUMMARY | 2018-05-15 21:42 | XMS REPORT ---
Author Author Jimbo Lyon Organization [employer] Address Unknown Phone Unavailable Care Team Providers Care Accounts Receivable Accountant Name Role Phone Jimbo Lyon CP Unavailable [...]
--- OUTSIDE RECORDS SUMMARY | 2018-05-15 21:42 | XMS REPORT ---
Author Author Jimbo Lyon Organization [employer] Address Unknown Phone Unavailable Care Team Providers Care Tractor Mechanic Helper Name Role Phone Jimbo Lyon CP Unavailable [...]
--- OUTSIDE RECORDS SUMMARY | 2018-05-15 21:42 | XMS REPORT ---
Author Author Jimbo Lyon Organization [employer] Address Unknown Phone Unavailable Care Team Providers Care Business Center Manager Name Role Phone Jimbo Lyon CP [...]
--- OUTSIDE RECORDS SUMMARY | 2018-05-15 21:42 | XMS REPORT | Clinical Summary ---
Author Author [facility] Address Unknown Phone Unavailable Care Team Providers Care Industrial Staff Nurse Name Role Phone LuisaTraceeÁlvaro Gerardo DO PCP Allergies Comments Active Allergy Reactions Severity Noted Date Duloxetine Swelling 04/15/2018 Ibuprofen GI 04/16/2018 Intolerance Naproxen Swelling 04/15/2018 Nsaids (Non-Steroidal Swelling 04/15/2018 Anti-Inflammatory Drug) Medications End Date Status Medication Sig Dispensed Refills Start Date Active hydroxychloroquine Take by mouth 0 (PLAQUENIL) 200 mg tablet 2 (two) times a day. Active topiramate (TOPAMAX) 50 Take 50 mg by 0 MG tablet mouth 2 (two) times a day. Active gabapentin (NEURONTIN) Take 100 mg 0 100 mg capsule by mouth 3 (three) times a day. Active ggpnomqn-blheafmwsrjo-itu Take 1 tablet 0 ivud (TRIUMEQ) 600-50-300 by mouth mg tablet daily. Active valACYclovir (VALTREX) Take 500 mg 0 500 MG tablet by mouth daily. Active promethazine (PHENERGAN) Take 25 mg by 0 25 MG tablet mouth every 6 (six) hours as needed for nausea or vomiting. Active acetaminophen-codeine Take 1 tablet 0 (TYLENOL WITH CODEINE #3) by mouth 300-30 mg per tablet every 6 (six) hours as needed for moderate pain. Active propranolol LA (INDERAL Take 1 p.o. 30 capsule 11 LA) 60 MG 24 hr every morning 9 capsuleIndications: Chronic migraine without aura, intractable, with status migrainosus Active SUMAtriptan (IMITREX) 100 Take 1/2-1 18 tablet 3 MG tabletIndications: tablet p.o. 9 Chronic migraine without every 2 hours aura, intractable, with as needed status migrainosus migraine up to 2 in 24 hours. Max use: 2 days a week Active Problems Problem Noted Date Chronic migraine without aura, intractable, with status migrainosus 05/13/2018 Chronic insomnia 05/13/2018 Paresthesias 05/13/2018 Morbid obesity 05/13/2018 Sjogren's syndrome 05/07/2013 Encounters Care Team Description Date Type Specialty Álvaro Patel, Nicole Esposito MD Chronic migraine without aura, intractable, with status migrainosus (Primary Dx); Chronic insomnia; Paresthesias; Sjogren's syndrome with other organ involvement (HCC); Morbid obesity (HCC) 05/13/2018 Office Visit Neurology Álvaro Patel DO Pleurisy (Primary Dx); HIV (human immunodeficiency virus infection) (HCC); Chronic migraine without aura without status migrainosus, not intractable; Sjogren's syndrome with other organ involvement (HCC) 04/16/2018 Office Visit Family Medicine Cathleen Bartlett RN 04/15/2018 Nurse Triage Access after 05/14/2017 Family History Medical History Relation Name Comments Depression Brother Diabetes Father Heart disease Father Hyperlipidemia Father Hypertension Father Depression Maternal Grandfather Depression Mother Hyperlipidemia Mother Hypertension Mother Cancer Paternal Grandfather Depression Sister Relation Name Status Comments Brother Alive Father Alive Maternal Grandfather Maternal Grandmother Alive Mother Alive Paternal Grandfather Paternal Grandmother Sister Alive Social History Date Tobacco Use Types Packs/Day Years Used Never Smoker Smokeless Tobacco: Never Used Tobacco Cessation: Counseling Given: No Alcohol Use Drinks/Week oz/Week Comments Yes 1 Glasses of 0.6 wine Sex Assigned at Date Recorded Not on file Industry Job Start Date Occupation Not on file Not on file Not on file Travel End Travel History Travel Start No recent travel history available. Last Filed Vital Signs Time Taken Vital Sign Reading 05/13/2018 8:16 AM [employer] Blood Pressure 112/78 05/13/2018 8:16 AM [employer] Pulse 96 04/16/2018 2:02 PM [employer] Temperature 37.1 C (98.7 F) 04/16/2018 2:02 PM [employer] Respiratory Rate 20 04/16/2018 2:02 PM [employer] Oxygen Saturation 100% - Inhaled Oxygen - Concentration 05/13/2018 8:16 AM [employer] Weight 133 kg (294 lb) 05/13/2018 8:16 AM [employer] Height 170.2 cm (5' 7") 05/13/2018 8:16 AM [employer] Body Mass Index 46.05 Plan of Treatment Care Team Description Date Type Specialty Nicole Villatoro MD [address] [facility] [address] [place] [address] 07/30/2018 Office Visit Neurology Health Maintenance Due Date Last Done Comments CERVICAL CANCER SCREENING 02/02/2004 INFLUENZA VACCINE 12/05/2017 Results Not on fileafter 05/14/2017 Insurance Payer Benefit Subscriber ID Type Phone Address Plan / Group MEDICAID MEDICAID xxxxxxxxx Medicaid BCBS BCBS xxxxxxxxxxxx PPO CHOICE PPO/DARIEN DIAZ [place] [address] [id number] Advance Directives Patient has advance care planning documents on file. For more information, brian squires contact: Mark Oseguera [address] [place] [address]
--- OUTSIDE RECORDS SUMMARY | 2018-05-15 21:42 | XMS REPORT | Continuity of Care Document ---
Author Author [facility] Address Unknown Phone Unavailable Problems Problem Status Onset Date Classification Date Reported Comments Source Other forms of dyspnea Active Diagnosis 08/04/2016 [facility] Edema, unspecified type Active Diagnosis 08/16/2016 [facility] Other symptoms involving cardiovascular system Active Diagnosis 08/16/2016 [facility] Abnormal EKG Active Diagnosis 08/16/2016 [facility] Chest pain at rest Active Diagnosis 08/16/2016 [facility] SLE exacerbation Active Problem 08/16/2016 [facility] Dizziness Active Diagnosis 08/16/2016 [facility] Acute deep vein thrombosis of brachial vein of right upper extremity Active Diagnosis 08/16/2016 [facility] Other systemic lupus erythematosus with endocarditis Active Diagnosis 08/16/2016 [facility] Medications Medication Details Route Status Patient Instructions Ordering Provider Order Date Source Azathioprine 1 tablet Orally Active 50 MG Orally as directed [facility] Gabapentin not defined Orally Active 100 MG Orally [facility] Topiramate 1 tablet Orally Active 50 MG Orally Twice a day [facility] Pantoprazole Sodium 1 tablet Orally Active 40 MG Orally Once a day [facility] Promethazine HCl 1 tablet as needed Orally Active 25 MG Orally every 12 hrs [facility] Baclofen 1/2 to 1 tab Orally Active 10 MG Orally once every night [facility] Tramadol HCl not defined Orally Active 5 mg Orally every six to eight hours [facility] Pilocarpine HCl 1 tablet Orally Active 5 MG Orally Three times a day [facility] PredniSONE 1 tablet Orally Active 20 MG Orally Once a day [facility] Famotidine 1 tablet Orally Active 40 MG Orally Once a day [facility] Meclizine HCl 1 tablet as needed Orally Active 25 MG Orally Once a day [facility] Acetaminophen 2 capsules as needed Orally Active 500 MG Orally every 6 hrs [facility] Gabapentin 1 capsule Orally Active 300 MG Orally once every night [facility] Hydroxychloroquine Sulfate 1 tablet with food or milk Orally Active 200 MG Orally Once a day [facility] Acyclovir 1 capsule Orally Active 200 MG Orally Three times a day [facility] Gabapentin 1 capsule Orally Active 300 MG Orally once every night [facility] Allergies, Adverse Reactions, Alerts Substance Category Reaction Severity Reaction type Status Date Reported Comments Source Naproxen Adverse Reaction anaphylaxis Adverse Reaction Active 08/14/2016 [facility] Cymbalta Adverse Reaction anaphylaxis Adverse Reaction Active 08/14/2016 [facility] Immunizations Immunization Date Given Site Status Last Updated Comments Source Results Order Name Results Value Reference Range Date Interpretation Comments Source Vital Signs Vital Sign Value Date Comments Source Weight 252 08/14/2016 [facility] Heart Rate 68 08/14/2016 [facility] Diastolic (mm Hg) 70 08/14/2016 [facility] Systolic (mm Hg) 118 08/14/2016 [facility] Weight 258 07/24/2016 [facility] Heart Rate 66 07/24/2016 [facility] Diastolic (mm Hg) 80 07/24/2016 [facility] Systolic (mm Hg) 124 07/24/2016 [facility] Encounters Location Location Details Encounter Type Encounter Number Reason For Visit Attending Provider ADM Date DC Date Status Source Procedures Procedure Code Date Perfomer Comments Source
--- OUTSIDE RECORDS SUMMARY | 2018-05-15 21:42 | XMS REPORT ---
Author Author [facility] Address Unknown Phone Unavailable Care Team Providers Care Cyber Policy And Strategy Planner Name Role Phone La Nena MELARA Unavailable Unavailable WENDY CRYSTAL Unavailable Unavailable SWEET, Cyn LAIRD Unavailable Unavailable Problems This patient has no known problems. Allergies, Adverse Reactions, Alerts This patient has no known allergies or adverse reactions. Medications This patient has no known medications. Encounters Start Date/Time End Date/Time Encounter Type Admission Type Attending [facility] Facility Care Department Encounter ID 2016-10-14 13:25:22 Inpatient [facility] [id number] 2016-10-13 09:44:19 Inpatient [facility] [id number] 2016-10-11 01:54:33 Inpatient [facility] [id number] 2018-06-28 00:00:00 2018-06-28 00:00:00 Outpatient [facility] [id number] 2018-06-19 00:00:00 2018-06-19 00:00:00 Outpatient [facility] [id number] 2018-06-12 00:00:00 2018-06-12 00:00:00 Outpatient [facility] [id number] 2018-03-18 00:00:00 2018-03-18 00:00:00 Outpatient [facility] [id number] 2018-03-13 00:00:00 2018-03-13 00:00:00 Outpatient [facility] [id number] 2018-03-04 00:00:00 2018-03-04 00:00:00 Outpatient [facility] [id number] 2018-02-13 15:33:03 2018-02-13 15:33:03 Outpatient [facility] [id number] 2018-01-10 17:43:16 2018-01-10 17:43:16 Outpatient [facility] [id number] 2018-01-09 15:21:48 2018-01-09 15:21:48 Outpatient [facility] [id number] 2018-01-03 00:00:00 2018-01-03 00:00:00 Outpatient [facility] [id number] 2017-12-21 00:00:00 2017-12-21 00:00:00 Outpatient [facility] [id number] 2017-12-20 00:00:00 2017-12-20 00:00:00 Outpatient [facility] [id number] 2017-12-19 00:00:00 2017-12-19 00:00:00 Outpatient [facility] [id number] 2017-12-17 00:00:00 2017-12-17 00:00:00 Outpatient [facility] [id number] 2017-12-06 00:00:00 2017-12-06 00:00:00 Outpatient [facility] [id number] 2017-11-16 00:00:00 2017-11-16 00:00:00 Outpatient [facility] [id number] 2017-11-15 00:00:00 2017-11-15 00:00:00 Outpatient [facility] [id number] 2017-10-29 11:51:33 2017-10-29 11:51:33 Outpatient [facility] [id number] 2017-10-29 10:18:42 2017-10-29 10:18:42 Outpatient [facility] [id number] 2017-09-10 00:00:00 2017-09-10 00:00:00 Outpatient [facility] [id number] 2017-08-10 12:24:00 2017-08-10 12:24:00 Outpatient [facility] [id number] 2017-08-03 00:00:00 2017-08-03 00:00:00 Outpatient [facility] [id number] 2017-06-28 18:46:20 2017-06-28 18:46:20 Outpatient [facility] [id number] 2017-06-20 12:33:02 2017-06-20 12:33:02 Outpatient [facility] [id number] 2017-06-14 00:00:00 2017-06-14 00:00:00 Outpatient [facility] [id number] 2017-06-14 00:00:00 2017-06-14 00:00:00 Outpatient [facility] [id number] 2017-06-13 00:00:00 2017-06-13 00:00:00 Outpatient [facility] [id number] 2017-05-31 00:00:00 2017-05-31 00:00:00 Outpatient [facility] [id number] 2017-04-19 00:00:00 2017-04-19 00:00:00 Outpatient [facility] [id number] 2017-04-12 00:00:00 2017-04-12 00:00:00 Outpatient [facility] [id number] 2017-03-23 13:31:50 2017-03-23 13:31:50 Outpatient [facility] [id number] 2017-03-19 00:00:00 2017-03-19 00:00:00 Outpatient [facility] [id number] 2017-02-06 00:00:00 2017-02-06 00:00:00 Outpatient [facility] [id number] 2017-02-02 11:28:10 2017-02-02 11:28:10 Outpatient [facility] [id number] 2017-01-24 12:00:56 2017-01-24 12:00:56 Outpatient [facility] [id number] 2017-01-24 11:59:26 2017-01-24 11:59:26 Outpatient [facility] [id number] 2017-01-19 00:00:00 2017-01-19 00:00:00 Outpatient [facility] [id number] 2017-01-12 00:00:00 2017-01-12 00:00:00 Outpatient [facility] [id number] 2016-12-26 13:51:47 2016-12-26 13:51:47 Outpatient [facility] [id number] 2016-12-20 09:30:49 2016-12-20 09:30:49 Outpatient [facility] [id number] 2016-12-20 09:14:39 2016-12-20 09:14:39 Outpatient [facility] [id number] 2016-12-20 00:00:00 2016-12-20 00:00:00 Outpatient [facility] [id number] 2016-12-19 14:56:03 2016-12-19 14:56:03 Outpatient [facility] [id number] 2016-12-09 22:39:36 2016-12-09 22:39:36 Emergency [facility] [id number] 2016-12-09 18:53:14 2016-12-09 18:53:14 Emergency [facility] [id number] 2016-12-06 13:43:58 2016-12-06 13:43:58 Outpatient [facility] [id number] 2016-11-30 00:00:00 2016-11-30 00:00:00 Outpatient [facility] [id number] 2016-11-29 00:00:00 2016-11-29 00:00:00 Outpatient [facility] [id number] 2016-11-27 08:25:15 2016-11-27 08:25:15 Outpatient [facility] [id number] 2016-11-13 13:43:20 2016-11-13 13:43:20 Outpatient [facility] [id number] 2016-11-09 13:20:27 2016-11-09 13:20:27 Outpatient [facility] [id number] 2016-11-09 10:06:31 2016-11-09 10:06:31 Outpatient [facility] [id number] 2016-11-09 09:38:24 2016-11-09 09:38:24 Outpatient [facility] [id number] 2016-11-09 09:02:58 2016-11-09 09:02:58 Outpatient [facility] [id number] 2016-10-13 09:05:55 2016-10-13 00:00:00 Inpatient [facility] [id number] 2016-10-10 10:30:52 2016-10-10 10:30:52 Emergency [facility] [id number] 2016-10-10 09:00:09 2016-10-10 09:00:09 Inpatient [facility] [id number] Results Test Description Test Time Test Comments Text Results Atomic Results Result Comments CT, ABDOMEN 2017-04-09 14:33:00 Reason for exam:->abdominal painIs the patient ?->UnknownWhat is the patient's sedation requirement?->No Sedation FINAL REPORT CT abdomen and pelvis with contrast. INDICATION: abdominal painrlq abdominal pain 1 week with n/v COMPARISON: No prior studies available for comparison. TECHNIQUE: Multiple contiguous transaxial images of the abdomen and pelvis were obtained following the administration of intravenous contrast. This exam was performed according to our departmental dose optimizati on program which includes automated exposure control, adjustment of the mA and/or kV according to patient size and/or use of iterative reconstructive technique. FINDINGS: The lung bases demonstrate mild atelectasis. The osseous structures are intact. The liver, spleen, pancreas, and adrenal glands are unremarkable. The gallbladder is unremarkable. There is no biliary dilatation. The stomach is underdistended limiting its evaluation. Both kidneys are unremarkable. The urinary bladder is unremarkable. No pelvic masses are seen. There is an intrauterine device which appears low lying in the region of the lower uterine segment and can be correlated clinically and with ultrasound examination as clinically indicated. There is a small amount of fluid in the dependent portion of the pelvis. There is a moderate amount of fecal material throughout the visualized colon suggestive of constipation without mechanical bowel obstruction. The appendix appear within normal limits. Nonspecific fluid- filled small bowel loops can be seen in the setting of small bowel enteritis. Nonspecific numerous mildly enlarged lymph nodes are seen in the inguinal regions bilaterally measuring up to 1.5 x 2.5 cm in the left inguinal region which may represent nonspecific reactive, inflammatory or less likely neoplastic in etiology, amenable to follow-up examination as clinically indicated. Scattered subcentimeter lymph nodes are seen in the mesentery and retroperitoneum. There is a small fat-containing umbilical hernia. IMPRESSION:1. No evidence of acute appendicitis.2. CT findings suggestive of nonspecific small bowel enteritis. Colonic constipation.3. Low-lying intrauterine device as above. Small amount of fluid in the pelvis.4. Nonspecific mildly enlarged bilateral inguinal lymph nodes as above. Signed: Cricket Fernandez MDReport Verified Date/Time: 04/09/2017 14:33:21 Reading Location: [facility] C013X [facility] Consult Reading Room ALYSIS W/ MICROSCOPIC 2017-04-09 12:58:00 COLOR (BEAKER) (test orqz=980) Light Yellow CLARITY (BEAKER) (test ozzb=561) Clear SPECIFIC GRAVITY UA (BEAKER) (test poet=065) 1.010 1.001-1.035 PH UA (BEAKER) (test rjtg=161) 5.5 5.0-8.0 PROTEIN UA (BEAKER) (test dwou=661) 10 mg/dL Negative GLUCOSE UA (BEAKER) (test wotc=146) Negative Negative KETONES UA (BEAKER) (test stsc=095) Negative Negative BILIRUBIN UA (BEAKER) (test envy=783) Negative Negative BLOOD UA (BEAKER) (test odwq=573) Negative Negative NITRITE UA (BEAKER) (test rtbv=125) Negative Negative LEUKOCYTE ESTERASE UA (BEAKER) (test wlzv=184) Trace Negative UROBILINOGEN UA (BEAKER) (test xypl=607) 0.2 mg/dL 0.2-1.0 RBC UA (BEAKER) (test nqgt=980) < /HPF WBC UA (BEAKER) (test ivcl=522) 1 /HPF BACTERIA (BEAKER) (test xais=100) Rare MUCUS (BEAKER) (test hqrl=8235) Rare SQUAMOUS EPITHELIAL (BEAKER) (test yctr=595) 1 /HPF SOURCE(BEAKER) (test osdg=5553) Urine, Voided SCREEN, [id number] 12:55:00* Test Item Value Reference Range Comments TEST URINE (BEAKER) (test kbkd=149) Negative BASIC METABOLIC [id number] 10:36:00* Test Item Value Reference Range Comments SODIUM (BEAKER) (test otgv=817) 137 meq/L 136-145 POTASSIUM (BEAKER) (test ymzr=452) 3.6 meq/L 3.5-5.1 CHLORIDE (BEAKER) (test gurd=010) 111 meq/L 98-107 CO2 (BEAKER) (test yjnq=415) 17 meq/L 22-29 BLOOD UREA NITROGEN (BEAKER) (test jjcr=043) 10 mg/dL 7-21 CREATININE (BEAKER) (test uwcg=412) 0.80 mg/dL 0.57-1.25 GLUCOSE RANDOM (BEAKER) (test hkgy=063) 79 mg/dL 70-105 CALCIUM (BEAKER) (test oatk=300) 8.6 mg/dL 8.4-10.2 EGFR (BEAKER) (test yqrq=2812) mL/min/1.73 sq m INSUFFICIENT CLINICAL DATA TO CALCULATE ESTIMATED GFR. ALKALINE [id number] 10:34:00* Test Item Value Reference Range Comments ALKALINE PHOSPHATASE (BEAKER) (test kkhe=135) 95 U/L 40-150 [id number] 10:34:00* Test Item Value Reference Range Comments LIPASE (BEAKER) (test qynl=962) 25 U/L 8-78 ALT (SGPT)2017-04-09 10:34:00* Test Item Value Reference Range Comments ALT (SGPT) (BEAKER) (test yxtg=178) 12 U/L 6-55 [id number] 10:34:00* Test Item Value Reference Range Comments AMYLASE (BEAKER) (test msxf=268) 48 U/L 25-125 AST (SGOT)2017-04-09 10:34:00* Test Item Value Reference Range Comments AST (SGOT) (BEAKER) (test gbun=186) 18 U/L 5-34 RAD, CHEST, 1 VIEW, NON [id number] 10:32:00Reason for exam:->CHEST PAINIs the patient ?->UnknownShould this be performed at the bedside?->YesFINAL REPORT Chest one view. Clinical history: CHEST PAIN Comparison: No priors Discussion: A frontal chest is provided. Cardiomediastinal contours are unchanged. There is no serenity pulmonary edema, consolidation, pneumothorax, or significant effusion. A nodular density projecting over the lef t upper lung may be artifactual. Suggest radiographic follow-up with AP and late ral views. No acute osseous abnormality. Signed: Horacio Perkins Verified Date /Time: 04/09/2017 10:32:25 Reading Location: [facility] Radiology Reading Ro om W/PLT COUNT & AUTO [id number] 10:31:00* Test Item Value Reference Range Comments WHITE BLOOD CELL COUNT (BEAKER) (test tqlf=152) 8.7 K/ L 3.5-10.5 RED BLOOD CELL COUNT (BEAKER) (test qqnh=270) 3.93 M/ L 3.93-5.22 HEMOGLOBIN (BEAKER) (test bsmp=676) 11.2 GM/DL 11.2-15.7 HEMATOCRIT (BEAKER) (test dneu=364) 34.1 % 34.1-44.9 MEAN CORPUSCULAR VOLUME (BEAKER) (test cwys=778) 86.8 fL 79.4-94.8 MEAN CORPUSCULAR HEMOGLOBIN (BEAKER) (test jajr=692) 28.5 pg 25.6-32.2 MEAN CORPUSCULAR HEMOGLOBIN CONC (BEAKER) (test qqbb=016) 32.8 GM/DL 32.2-35.5 RED CELL DISTRIBUTION WIDTH (BEAKER) (test rmql=917) 14.5 % 11.7-14.4 PLATELET COUNT (BEAKER) (test smaj=660) 268 K/CU MM 150-450 MEAN PLATELET VOLUME (BEAKER) (test gifp=586) 10.9 fL 9.4-12.3 NUCLEATED RED BLOOD CELLS (BEAKER) (test ebqy=585) 0 /100 WBC 0-0 NEUTROPHILS RELATIVE PERCENT (BEAKER) (test vyma=853) 52 % LYMPHOCYTES RELATIVE PERCENT (BEAKER) (test sjxz=110) 39 % MONOCYTES RELATIVE PERCENT (BEAKER) (test cizx=434) 7 % EOSINOPHILS RELATIVE PERCENT (BEAKER) (test qvpw=948) 1 % BASOPHILS RELATIVE PERCENT (BEAKER) (test bozs=359) 1 % NEUTROPHILS ABSOLUTE COUNT (BEAKER) (test zflm=304) 4.55 K/ L 1.56-6.13 LYMPHOCYTES ABSOLUTE COUNT (BEAKER) (test wkef=232) 3.40 K/ L 1.18-3.74 MONOCYTES ABSOLUTE COUNT (BEAKER) (test unna=290) 0.61 K/ L 0.24-0.36 EOSINOPHILS ABSOLUTE COUNT (BEAKER) (test azir=390) 0.09 K/ L 0.04-0.36 BASOPHILS ABSOLUTE COUNT (BEAKER) (test valc=666) 0.04 K/ L 0.01-0.08 IMMATURE GRANULOCYTES-RELATIVE PERCENT (BEAKER) (test tljk=2824) 1 % 0-1 PT/[id number] 10:24:00* Test Item Value Reference Range Comments PROTIME (BEAKER) (test ptul=127) 14.8 seconds 11.7-14.7 INR (BEAKER) (test sldt=851) 1.2 <=5.9 PARTIAL THROMBOPLASTIN TIME (BEAKER) (test jqrl=648) 31.6 seconds 22.5-36.0 RECOMMENDED COUMADIN/WARFARIN INR THERAPY RANGESSTANDARD DOSE: 2.0 - 3.0 Inclu zina: PROPHYLAXIS for venous thrombosis, systemic embolization; TREATMENT for macario ous thrombosis and/or pulmonary embolus.HIGH RISK: Target INR is 2.5-3.5 for pat ients with mechanical heart valves.HEPTOBILIARY W PHARM [facility] [address], [place] [address] Patient Name: RAHUL SHERMAN MR #: [id number] : 1985 Age/Sex: 32/F Req #: [id number] [facility] Physician: LUIS MELARA MD Ordered by: SOLO GONZALES MD Report #: [id number] Location: [facility] Room/Bed: [place] [address] Procedure: [id number] NM/HEPTOBILIARY W PHARM Exam Date: 05/29/17 Exam Elbert e: 1115 REPORT STATUS: Signed Hepatobiliary Scan with Gallbladder Eject ion Fraction Clinical information: 32 F with upper abdominal pain; chronic nausea Technique: Following intravenous administration of 6.8 millicuries o f Tc-99m mebrofenin, dynamic images of the abdomen in the anterior projection were obtained through 60 minutes. Sincalide (CCK analog) 2.5 micrograms was administered intravenously over 30 minutes with additional imaging for determ ination of gallbladder ejection fraction. Discussion: Perfusion of the live r is normal. Extraction of tracer by the liver parenchyma is normal. Tracer appears promptly within the biliary tract. The gallbladder begins to fill by 10 minutes post injection of tracer and fills adequately. Tracer is seen in the small bowel during the sincalide infusion. The gallbladder ejection fract ion with sincalide is 17% (normal greater than 40%). Impression: 1. Filling of the gallbladder excludes acute cystic duct obstruction/acute chol ecystitis. 2. The decreased gallbladder ejection fraction of 17% supports the clinical diagnosis of chronic cholecystitis/gallbladder dyskinesia. S igned by: Dr. Radha Tee M.D. on 05/30/2017 1:22 PM Dictated By: RADHA JOINER MD 1322 Transcribed By: JOVANA on 05/30/17 1322 COPY TO: SOLO GONZALES MD ABDOMEN- [facility] ([address] [place], [place] [address] Patient Name: RAHUL SHERMAN MR #: [id number] : 1985 Age/Sex: 32/F Req #: [id number] Adm Physician: LUIS MELARA MD Ordered by: LUIS MELARA MD Report #: [id number] Location: [facility] Room/Bed: [place] [address] Procedure: [id number] DX/ABDOMEN-1VIEW (KUB) Exam Date: 05/29/17 Exam Time : 0750 REPORT STATUS: Signed PROCEDURE: X-RAY ABDOMEN - KUB COM PARISON: None. INDICATIONS: ILLEUS FINDINGS: There is a non -obstructed bowel-gas pattern. There are no calcifications projected over the renal shadows, expected course of the ureters or bladder. There are no acute osseous abnormalities. The lung bases are clear. Intrauterine device is pres ent. Phleboliths are present. CONCLUSION: No acute radiographic ab normality. Dictated by: Gio Montgomery M.D. on 05/29/2017 at 9:19 Rose Marie ctronically approved by: Gio Montgomery M.D. on 05/29/2017 at 9:19 Dictated By: GIO MONTGOMERY MD 0919 COPY TO: LUIS MELARA [facility] [address] [place] [address] Patient Name: RAHUL SHERMAN MR #: [id number] : 1985 Age/Sex: 32/F Req #: [id number] Adm Physician: LUIS MELARA MD Ordered by: BELLA VICK MD Report #: [id number] Location: [facility] Room/Bed: [facility] 1831 Procedure: [id number] US/US GALLBLADDER Exam Date: 05/29/17 Exam Time: 1505 REPORT STATUS: Signed PROCEDURE: US GALLBLADDER COMPARISO N: None. INDICATIONS: R/O Gallstones FINDINGS: LIVER: Size: 12.1 cm in the right nidclavicular line, normal Appearance: Normal e chogenicity, smooth contour Mass: No focal masses GALLBLADDER: St ones/Sludge: None Appearance: No wall thickening, pericholecystic fluid or hydrops. Gallbladder wall measures 0.3 cm. Sonographic Boyer's Sign: Ne gative BILE DUCTS: Intrahepatic Ducts: No dilation Extrahepa tic Ducts: Common bile duct measures 0.30 cm, no dilatation. PANCREAS: Visualized portions of the neck and proximal body are normal. RIGHT KIDNE Y: Size: 11.7 x 4.4 x 6.3 cm in length Echogenicity: Normal Collecting System: No hydronephrosis Stone: None Cyst/Mass: None VESSELS: Aorta: Visualized portions are normal. Inferior Vena Cava: Visualized po rtions are normal. Main Portal Vein: 1.0 cm, normal size with hepatopedal fl ow. FREE FLUID: No ascites or pleural effusions. CONCLUSION: Normal right upper quadrant ultrasound. Dictated by: Daniel Bernabe M.D. on 05/29/2017 at 18:03 Electronically approved by: Daniel Bernabe M.D. on 05/29/2017 at 18:03 Dictated By: DANIEL BERNABE MD 02 Transcribed By: SADIA on 05/29/171802 COPY TO: BELLA VICK MD CT ABDOMEN/PELVIS [address] [place], [place] [address] Patient Name: RAHUL SHERMAN MR #: [id number] : 1985 Age/Sex: 32/F Req #: [id number] Adm Physician: Ordered by: EMILIANA SWAN MD Report #: [id number] Location: ER Room/Bed: Procedure: [id number] CT/CT ABDOMEN/PELVIS W Exam D ate: 05/28/17 Exam Time: 1110 REPORT STATUS: Si gned PROCEDURE: CT ABDOMEN AND PELVIS WITH CONTRAST TECHNIQUE: The a bdomen and pelvis were scanned utilizing a multidetector helical scanner from the diaphragm to the lesser trochanter after the IV administration of 100 cc of Isovue 370. Coronal and sagittal multiplanar reformations were obtained. COMPARISON: None. INDICATIONS: LUPUS FINDINGS: LOWER THORAX: Normal. HEPATOBILIARY: No focal hepatic lesion. No intrahepatic or extr ahepatic biliary ductal dilatation. Gallbladder is unremarkable. SPLEEN: No splenomegaly. Small splenule in the hilum. PANCREAS: No focal masses or ductal dilatation. ADRENALS: No adrenal nodules. KIDNEYS/URETERS: No hydronep hrosis, stones, or solid mass lesions. PELVIC ORGANS/BLADDER: Urinary bladder is unremarkable. Intrauterine device is noted. No adnexal mass. PERITON EUM / RETROPERITONEUM: No ascites or pneumoperitoneum. LYMPH NODES: No pelvic sidewall, retroperitoneal, or mesenteric lymphadenopathy. Mildly prominent le ft inguinal lymph node measures 1.3 cm short axis with normal morphology. V ESSELS: The abdominal aorta, major branch vessels, and iliac arterial systems are patent. Portal vein, splenic vein, and central superior mesenteric vein are patent. Incidental note of a retroaortic left renal vein. GI TRACT: The large bowel shows no evidence of distention or wall thickening. Gas and fecal material is noted throughout. The appendix is normal. There are a few m ildly dilated loops of small bowel in the left upper quadrant to a maximum of 3.4 cm in caliber. No transition point is identified. BONES AND SOFT T ISSUES: Postsurgical changes of the left inguinal region likely related to pr ior lymph node dissection. Otherwise no focal soft tissue abnormalities. No o sseous destructive lesions. IMPRESSION: Mildly dilated loops of smal l bowel in the left upper quadrant likely reflects ileus in the absence of a defined transition point. Otherwise no acute intra-abdominal or pelvic CT abnormalities. Dictated by: Yessenia Morrow M.D. on 05/28/2017 at 11:54 Electronically approved by: Yessenia Morrow M.D. on 05/28/2017 at 11:54 Dictated By: YESSENIA MORROW MD 1154 Transcribed By: SADIA on 05/28/17 1154 COPY TO: SHOAIB SWAN MD CHEST 2 VIEWS [place] [address] Patient Name: RAHUL SHERMAN MR #: [id number] : 1985 Age/Sex: 32/F Req #: [id number] Adm Physician: Ordered by: EMILIANA SWAN MD Report #: [id number] Location: ER Room/Bed: Procedure: [id number] DX/CHEST 2 VIEWS Exam Date: 0 05/28/17 Exam Time: 0850 REPORT STATUS: Signed PROCEDURE: X-RAY CHEST, TWO VIEWS COMPARISON: 03/11/2017. INDICATIONS: LUPU S, WEAKNESS FINDINGS: Lungs are well-inflated. Right infrahilar pa tchy opacity is unchanged and likely represents summation of vascular structu res. Nodular opacity projects over the column on the lateral radiograph an d is also unchanged. No new consolidation. No pleural effusion or pneum othorax. Stable borderline enlargement of the cardiac silhouette without vascular decompensation. No acute osseous abnormality. CONCLUSION: Stable right infrahilar opacity likely represents summation of vascular structures. No acute cardiopulmonary normality. Questionable nodular opac ity projecting over the vertebral column, best seen on the lateral radiograph . Outpatient CT scan of the chest without contrast is suggested for further e valuation. Dictated by: Yessenia Morrow M.D. on 05/28/2017 at 9:21 Rose Marie ctronically approved by: Yessenia Morrow M.D. on 05/28/2017 at 9:21 D ictated By: YESSENIA MORROW MD 0 COPY TO: EMILIANA SWAN MD CHEST 2 VIEWS [place] [address] Patient Name: RAHUL SHERMAN MR #: [id number] : 1985 Age/Sex: 32/F Req #: [id number] Adm Physician: Ordered by: PETRA MILES MD Report #: [id number] Location: ER Room/Bed: Procedure: [id number] DX/CHEST 2 VIEWS Exam Date: 05/11/16 Exam Time: 2234 REPORT STATUS: Signed CHEST 2 VIEWS, Technique: CHEST 2 VIEWS Comparison: None Clinical history: S ACHY, H/O SLE AND HIV S [id number] S 2234 DISCUSSION: Hear t/mediastinum: The heart is borderline enlarged. Lungs/pleura: Mild right infrahilar opacity/right middle lobe nodular opacity on frontal view. No pleur al effusion or pneumothorax. IMPRESSION: 1. Borderline cardiomegaly. 2. Mild right infrahilar opacity, which could be due to vascular summation shado w, atelectasis/scarring or developing infection. Recommend 6-8 week follow-up. Signed by: Dr Teresa Tafoya MD on 03/11/2017 11:06 PM Dictated By: TERESA TAFOYA MD 230 6 Transcribed By: JOVANA on 03/11/17 2306 COPY TO: PETRA MILES MD
--- OUTSIDE RECORDS SUMMARY | 2018-05-15 21:42 | XMS REPORT | Clinical Summary ---
Author Author EDUARDO [facility] Address Unknown Phone Unavailable Care Team Providers Care Director Of Collections And Archives Name Role Phone Sharpless PCP Unavailable Allergies Comments Active Allergy Reactions Severity Noted Date Duloxetine 04/09/2017 Naproxen 04/09/2017 Medications Not on file Active Problems Not on file Social History Date Tobacco Use Types Packs/Day Years Used Never Assessed Sex Assigned at Date Recorded Not on file Industry Job Start Date Occupation Not on file Not on file Not on file Travel End Travel History Travel Start No recent travel history available. Last Filed Vital Signs Not on file Plan of Treatment Not on file Results Not on fileafter 05/14/2017 Insurance Payer Benefit Subscriber ID Type Phone Address Plan / Group BLUE [employer] BCBS PPO xxxxxxxxxxxx PPO [phone] [address] [place] [address] CHOICE
[2018-05-15 22:36] LABS: BILIRUBIN,URINE NEGATIVE (NEGATIVE); CLARITY,URINE HAZY (CLEAR); COLOR,URINE YELLOW (YELLOW); KETONES,URINE NEGATIVE (NEGATIVE); LEUKOCYTE ESTERASE ,URINE NEGATIVE (NEGATIVE); NITRITE,URINE NEGATIVE (NEGATIVE); PROTEIN,URINE DIPSTICK NEGATIVE (NEGATIVE); URINE UROBILINOGEN 0.2 mg/dL (0.2 - 1)
[2018-05-15 22:37] LABS: PREGNANCY TEST, URINE NEGATIVE (NEGATIVE)
[2018-05-15 22:42] LABS: BACTERIA,URINE MODERATE /HPF; EPITHELIAL CELLS,URINE FEW /LPF; MUCUS,URINE MODERATE (RARE); RBC,URINE 0-5 /HPF (0-5)
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
[2018-05-16 01:21] VITALS: BP 115/83
== END 2018-05-16 01:48 | disposition home or self-care (01) ==
LOC: ER 21:39
DX: M54.2 Cervicalgia (principal); S16.1XXA Strain of muscle, fascia and tendon at neck level, initial encounter; S33.5XXA Sprain of ligaments of lumbar spine, initial encounter; V43.52XA Car driver injured in collision with other type car in traffic accident, initial encounter; Y92.488 Other paved roadways as the place of occurrence of the external cause; N30.90 Cystitis, unspecified without hematuria; M32.9 Systemic lupus erythematosus, unspecified; M35.00 Sjogren syndrome, unspecified; A60.00 Herpesviral infection of urogenital system, unspecified; B20 Human immunodeficiency virus [HIV] disease
CPT/HCPCS: 72040; 72100; 81001; 81025; 99284